=== PATIENT | male | born 1965 | race Caucasian/White ===

== ENCOUNTER 2024-10-11 06:47 | Day surgery (SDC) | payer OTHER ==
--- NOTE | 2024-10-07 09:36 | EKG ---
[facility] Test Date: 2024-10-07 Test Time: 10:26:54 Pat Name: BOO LOMELI Department: [facility] Room: Gender: M [employer] Instructor: [id number] : 1965 Requested By: LISA SUÁREZ Order Number: [id number] Reading MD: Quoc Berg Measurements Intervals [place] Rate: 72 P: 68 AK: 197 QRS: -58 QRSD: 149 T: 24 QT: 407 QTc: 445 Interpretive Statements Sinus rhythm Probable left atrial enlargement RBBB and LAFB No previous ECG available for comparison Electronically Signed On 10-07-2024 16:16:13 [employer] by Quoc Berg Please click the below link to view image of tracing.
[2024-10-07 09:44] LABS: BASOPHILS # (AUTO) 0.08 K/uL (0.00-0.20); BASOPHILS % (AUTO) 0.8 % (0.0-5.0); EOSINOPHILS # (AUTO) 1.04 K/uL (0.00-0.70); EOSINOPHILS % (AUTO) 10.8 % (0.0-8.0); HEMATOCRIT 47.2 % (42-54); IMMATURE GRANULOCYTE ABSOLUTE 0.21 K/uL (0-1); LYMPHOCYTES # (AUTO) 1.5 K/uL (1.0-4.8); LYMPHOCYTES % (AUTO) 15.5 % (21.0-51.0); MEAN CORPUSCULAR HEMOGLOBIN 28.7 pg (27.0-33.0); MEAN CORPUSCULAR HGB CONC 31.6 g/dL (32.0-36.0); MEAN CORPUSCULAR VOLUME 90.8 fL (79-99); MONOCYTES # (AUTO) 0.6 K/uL (0.1-1.0); MONOCYTES % (AUTO) 6.6 % (3.0-13.0); NEUTROPHILS # (AUTO) 6.2 K/uL (1.8-7.7); NEUTROPHILS % (AUTO) 64.1 % (40.0-77.0); PLATELET COUNT (AUTO) 211 K/uL (130-400); RED CELL DISTRIBUTION WIDTH 13.6 % (11.0-15.5); WHITE BLOOD COUNT (AUTO) 9.7 K/uL (4.8-10.8)
[2024-10-07 09:46] VITALS: BP 121/66; PULSE 75; RESP 17; TEMP 97.5
[2024-10-07 09:51] LABS: CREATININE 1.3 mg/dL (0.5-1.3); POTASSIUM 4.6 mmol/L (3.5-5.1)
[2024-10-07 09:53] LABS: INR 1.02 (0.85-1.15)
[2024-10-07 09:55] LABS: PARTIAL THROMBOPLASTIN TIME 25.7 SEC (26.3-35.5)
[2024-10-07 10:03] LABS: APPEARANCE,URINE CLEAR (CLEAR); BILIRUBIN,URINE NEGATIVE (NEGATIVE); COLOR,URINE LIGHT-YELLOW (YELLOW); GLUCOSE, URINE (UA) >=1000 mg/dL (NEGATIVE); KETONES,URINE NEGATIVE (NEGATIVE); LEUKOCYTE ESTERASE ,URINE NEGATIVE Leu/uL (NEGATIVE); NITRATE,URINE NEGATIVE (NEGATIVE); OCCULT BLOOD,URINE NEGATIVE (NEGATIVE); PROTEIN,URINE NEGATIVE (NEGATIVE); UROBILINOGEN,URINE 0.2 mg/dL (0.2-1.0)
[2024-10-07 10:05] LABS: ADD UA MICROSCOPIC YES
[2024-10-07 10:06] LABS: BACTERIA,URINE RARE /HPF (None Seen); MUCUS,URINE RARE LPF (None Seen); RBC,URINE 0-1 /HPF (0-1); SQUAMOUS EPITHELIAL CELL,UR RARE /HPF (0-2); WBC,URINE 0-1 /HPF (0-1)
[2024-10-07 10:12] LABS: B-TYPE NATRIURETIC PEPTIDE 8 pg/mL (0-100)
--- NOTE | 2024-10-07 11:38 | HMCIMG ---
CHEST 1VW HISTORY: Preop COMPARISON: 05/23/2013 FINDINGS: A frontal projection of the chest was obtained. No acute pulmonary infiltrates is seen. The heart is normal in size. Prominent interstitial markings are seen. Degenerative changes are seen. No evidence of aortic calcification is seen. IMPRESSION: 1. No acute pulmonary infiltrate is seen.
--- NOTE | 2024-10-10 14:18 | NUR ---
report reported creat and bun to dr rex sarmiento. ok to proceed
[2024-10-11] VITALS (12 sets, daily range): BP systolic 105–126; BP diastolic 47–80; PULSE 69–81; RESP 12–17; TEMP 97.3–98.1
[~2024-10-11] VITALS: Ht 172.7 cm; Wt 77.4 kg
[~2024-10-11 06:47] MED LIST: ACET-66 PO; ALBU90AE IH; ATOR40TA71 PO; BEETS PO; BUSP15TA3 PO; CHOL200026 PO; CO Q PO; DOCU-116 PO; DULO30CA52 PO; EMPA25TA PO; FENO145T26 PO; GABA-534 PO; ICOS1CAP PO; INSU300I3 SQ; LISI10TA24 PO; MELA5CAP PO; METF-444 PO; MIRT-22 PO; MULT-1258 PO; NITR0.4T50 SL; SEMA2PEN SQ; VIT1CAPS4 PO; WIXELA; XENICAL PO
[2024-10-11] MEDS: 0.9%NACL 1000ML 1,000 ML IV ONE (07:25)
[2024-10-11] MEDS ORDERED: IOHEXOL 350 MG/ML 100ML INFUS..BTL IV ONE (09:40)
[2024-10-11] MEDS ORDERED: HEParin 10,000 UNIT/10ML (1,000 UNIT/ML) VIAL ONE (09:40)
[2024-10-11] MEDS ORDERED: HEParin-NS 1,000 UNIT/500 ML 1,000 ML IV ONE (09:40)
[2024-10-11] MEDS ORDERED: VERAPAMIL HCL 2.5 MG/ML VIAL ONE (09:40)
[2024-10-11] MEDS ORDERED: NITROGLYCERIN 50MG VIAL ONE (09:41)
[2024-10-11] MEDS ORDERED: LIDOCAINE HCL 400MG/20ML VIAL ONE (09:46)
[2024-10-11] MEDS ORDERED: FENTanyl CITRate PF 50 MCG/1 ML 2ML VIAL ONE (09:56)
[2024-10-11] MEDS ORDERED: MIDAZOLAM HCL 1 MG/ML 2ML VIAL ONE (09:56)
--- NOTE | 2024-10-11 10:50 | PRN ---
PROCEDURE REPORT DATE OF PROCEDURE: Oct 11, 2024 MEND WORKER: [Antony Schwarz MD ] PROCEDURE PERFORMED: Conscious sedation Ultrasound guided right radial artery access Selective left coronary artery angiogram Selective right coronary artery angiogram Left heart catheterization TR band 13 destiney over right radial artery INDICATION: Abnormal stress test DESCRIPTION OF PROCEDURE: After informed consent was obtained, the patient was prepped and draped in the usual sterile fashion. A 6 [place] arterial sheath was inserted in the right radial artery using ultrasound guidance with first pass wall puncture. The arterial sheath was aspirated and flushed. A 6 Tunisian JL 3.5 was then advanced to the ascending aorta over an exchange length J-tip guidewire, was aspirated and flushed, and was used for selective coronary angiograms in multiple obliquities. A JR-4 was advanced in a similar fashion to the ascending aorta over the J-tipped guidewire and was used for selective right coronary angiograms in multiple oblique views with findings as outlined below. The JR-4 catheter advanced into the LV and pressures were obtained with a pull-back across the aortic valve. A TR band was placed over right radial artery. FLUOROSCOPY TIME: 2.6 min LEFT HEART HEMODYNAMICS: LVEDP 12 mm Hg and no gradient Ao CORONARY ANGIOGRAM: LEFT MAIN: Patent and 0% stenosis. Gives rise to LCx and LAD. LEFT ANTERIOR DESCENDING: Large vessel giving rise to two Diagonal branches. There is 30% prox LAD stenosis just after the first diagonal artery with ANAMARIA 3 flow. LEFT CIRCUMFLEX: Large and gives rise to two OM branches. 0% stenosis. RIGHT CORONARY ARTERY: Large, dominant vessel giving rise to PDA and PL branches. 0% stenosis. HEMOSTASIS: TR band 12 destiney over right radial artery INTERVENTIONS: None. COMPLICATIONS: None FINDINGS: Normal coronary anatomy and mild non-obstructive CAD. ESTIMATED BLOOD LOSS: 5 cc RECOMMENDATIONS/INSTRUCTIONS: Aggressive risk factor modification. CONTRAST DELIVERED TO PATIENT (mL): 50cc MD KAMINI Martinez JAMES R MD Oct 11, 2024 10:50
[2024-10-11] MEDS ORDERED: GLUCAGON 1MG KIT 1 MG ML IM PRN (11:00)
[2024-10-11] MEDS ORDERED: 0.9%NACL 1000ML 1,000 ML IV SCH (11:00)
[2024-10-11] MEDS ORDERED: DEXTROSE 50%-WATER 50 ML DISP.SYRIN IV PRN (11:00)
--- NOTE | 2024-10-11 11:45 | NUR ---
STARTED TO REMOVE 2 MLS OF AIR FROM VASBAND AND NOTED PT STARTED TO OOZ OF BLOOD. 2MLS OF AIR RE-INFLATED PT MADE AWARE OF SITUATION AND TOLD I WILL WAIT ABOUT 15-20 MINUTES TO REP-START RELEASING AIR AGAIN.
--- NOTE | 2024-10-11 13:14 | NUR ---
VAS BAND REMOVED AT THIS TIME STERILE 4X4 AND TEGADERM APPLIED TO AREA. NAD VSS RIGHT RADIAL SITE ASYMPTOMATIC.
--- NOTE | 2024-10-11 13:30 | NUR ---
PT AMBULATED TO RESTROOM WHEN HE RETURNED BACK TO THE ROOM AND WE NOTED PT WITH A HEMATOMA TO RIGHT RADIAL SITE. DIRECT PRESSURE APPLIED TO AREA. HEMATOMA SUBSIDED. VSS NAD. PT ADVISED TO CALL NURSING STAFF IF HEMATOMAT DEVELOPS AGAIN. WILL NOTIFY DR. SUÁREZ
--- NOTE | 2024-10-11 14:15 | NUR ---
SPOKE WITH DR. SUÁREZ AND WAS TOLD TO KEEP PT HERE AN EXTRA HOUR FOR OBSERVATION ON HIS RIGHT RADIAL SITE. BOTH PT AND MADE AWARE. RIGHT RADIAL SITE SOFT DRESSING DRY INTACT.
--- NOTE | 2024-10-11 15:33 | NUR ---
Full and complete discharge instructions given to Patient and Family both verbally and in writing. All questions answered. Patient denies c/o pain or discomfort. Voiced understanding to precautions post Marina Porter procedure. Radial site soft with small amount of bruising, no bleeding or hematoma. Radial pulses intact to wrists. PIV removed with catheter tip intact. W/C to POV to Home.
== END 2024-10-11 15:40 | disposition home or self-care (01) ==
LOC: DAH 06:47
PROVIDERS: ATTEND Student in an Organized Health Care Education/Training Program
DX: I25.118 Atherosclerotic heart disease of native coronary artery with other forms of angina pectoris (principal); R94.31 Abnormal electrocardiogram [ECG] [EKG]; R07.9 Chest pain, unspecified; R06.09 Other forms of dyspnea; E78.5 Hyperlipidemia, unspecified; J44.9 Chronic obstructive pulmonary disease, unspecified; E11.65 Type 2 diabetes mellitus with hyperglycemia; I11.9 Hypertensive heart disease without heart failure; I25.2 Old myocardial infarction; Z90.89 Acquired absence of other organs; Z98.890 Other specified postprocedural states; Z86.73 Personal history of transient ischemic attack (TIA), and cerebral infarction without residual deficits; Z88.0 Allergy status to penicillin; Z88.6 Allergy status to analgesic agent; Z79.899 Other long term (current) drug therapy
CPT/HCPCS: 80048; 83880; 85025; 85610; 85730; 81001; 36415; 71045; 93005; 93458; 82948; C1769; C1894; A4649; J3010; J3490 ×3; J7030; J1644 ×2; J2250; Q9967; A4215; A4222; A4221; A4663; A4216; A4606; Q9965; A4223 ×3; 99156